=== PATIENT | female | born 1965 | race Caucasian/White ===

== ENCOUNTER 2016-06-01 11:55 | Emergency (ER) | payer MEDICAID, OTHER ==
[~2016-06-01] VITALS: Ht 160 cm; Wt 59.0 kg
[~2016-06-01 11:55] MED LIST: ALPR2TAB7 PO; LEVE500T9 PO
[2016-06-01] MEDS ORDERED: BUPR300T52 PO (12:04)
[2016-06-01] MEDS ORDERED: LEVE1000 PO (12:05)
--- NOTE | 2016-06-01 12:08 | NUR ---
dr toscano at the bedside for eval.
[2016-06-01] MEDS ORDERED: LEVETIRACETAM 250 MG TABLET ONE (12:28)
[2016-06-01] MEDS ORDERED: LEVETIRACETAM 250 MG TABLET PO ONE (12:30)
--- NOTE | 2016-06-01 12:33 | NUR ---
lunch provided, pt ate 100%. resting in bed at this time.
[2016-06-01 12:37] LABS: BASOPHILS % (AUTO) 0.5 % (0.0-2.0); EOSINOPHILS % (AUTO) 0.5 % (0.0-7.0); HEMATOCRIT 41.3 % (37.0-47.0); HEMOGLOBIN 13.7 g/dL (12.0-16.0); LYMPHOCYTES # (AUTO) 1.8 K/uL (0.8-4.8); LYMPHOCYTES % (AUTO) 25.9 % (20.5-51.5); MEAN CORPUSCULAR HEMOGLOBIN 29.5 uug (27.0-31.0); MEAN CORPUSCULAR HGB CONC 33 g/dL (32.0-37.0); MEAN CORPUSCULAR VOLUME 89.1 fL (81.0-99.0); MONOCYTES # (AUTO) 0.5 K/uL (0.1-1.30); MONOCYTES % (AUTO) 6.9 % (0.0-11.0); NEUTROPHILS # (AUTO) 4.8 K/uL (1.8-8.9); NEUTROPHILS % (AUTO) 66.2 % (38.5-71.5); PLATELET COUNT (AUTO) 412 K/uL (150-450); RED BLOOD CELL COUNT(AUTO) 4.63 MIL/uL (4.20-5.40); RED CELL DISTRIBUTION WIDTH 13.1 % (11.5-14.5); WHITE BLOOD COUNT (AUTO) 7.1 K/uL (4.0-11.2)
[2016-06-01 12:40] LABS: *BLOOD, URINE 3+ (NEGATIVE); *CLARITY,URINE CLOUDY (CLEAR); *COLOR,URINE YELLOW (YELLOW); *KETONES,URINE 1+ (NEGATIVE); *PROTEIN,URINE 2+ (NEGATIVE); UGLUCOSE NEGATIVE (NEGATIVE)
[2016-06-01 12:45] LABS: CALCIUM 9.5 mg/dL (8.5-10.1); CARBON DIOXIDE 31 mmol/L (21-32); CHLORIDE 104 mmol/L (98-107); CREATININE 0.9 mg/dL (0.6-1.3); GFR 67 mL/min (>60); GLUCOSE 91 mg/dL (74-106); POTASSIUM 4.4 mmol/L (3.5-5.1); SODIUM SERUM 141 mmol/L (136-145); UREA NITROGEN, BLOOD 18 mg/dL (7-18)
[2016-06-01 12:54] LABS: ETHANOL < 3 MG/DL (0-0)
[2016-06-01 12:58] LABS: *AMPHETAMINE, URINE POSITIVE (NEGATIVE); *BARBITURATE, URINE NEGATIVE (NEGATIVE); *CANNABINOID, URINE NEGATIVE (NEGATIVE); *COCCAINE, URINE NEGATIVE (NEGATIVE); *OPIATE, URINE NEGATIVE (NEGATIVE); *PHENCYCLIDINE SCREEN,URINE NEGATIVE (NEGATIVE)
[2016-06-01 12:59] LABS: ALANINE AMINOTRANSFERASE 24 U/L (14-59); ALBUMIN 3.6 g/dL (3.4-5.0); ALKALINE PHOSPHATASE 49 U/L (50-136); ASPARTATE AMINOTRANSFERASE 16 U/L (15-37); BILIRUBIN,DIRECT 0.1 mg/dL (0.0-0.2); BILIRUBIN,TOTAL 0.5 mg/dL (0.2-1.0); TOTAL PROTEIN, SERUM 8.3 g/dL (6.4-8.2)
[2016-06-01 13:18] LABS: ACETAMINOPHEN < 2.0 ug/mL (10-30)
--- NOTE | 2016-06-01 13:21 | NUR ---
pt is medically cleared by dr toscano. thomas kraus from [facility] called and eta is 45 min.
[2016-06-01 13:32] LABS: LEUKOCYTE ESTERASE ,URINE TRACE (NEGATIVE); NITRITE, URINE POSITIVE (NEGATIVE)
[2016-06-01 13:36] LABS: *BILIRUBIN,URIN NEGATIVE (NEGATIVE)
[2016-06-01 13:54] LABS: BACTERIA,URINE MANY /HPF (NONE SEEN); SQUAMOUS EPITHELIAL CELL,UR MANY /HPF (NONE SEEN)
--- NOTE | 2016-06-01 14:24 | NUR ---
ANIA MCGARRY FROM [facility] AT BEDSIDE FOR PSYCH EVAL.
[2016-06-01 15:06] VITALS: BP 109/69
--- NOTE | 2016-06-01 15:06 | NUR ---
Patient given written and verbal discharge instructions. Patient verbalizes understanding of instructions. Patient is ambulatory with steady gait. Refuses offer of residential placement. Patient given list of available shelters in surrounding area.
== END 2016-06-01 15:07 | disposition home or self-care (01) ==
LOC: ER 11:57
DX: F32.9 Major depressive disorder, single episode, unspecified (principal); G40.909 Epilepsy, unspecified, not intractable, without status epilepticus; C50.912 Malignant neoplasm of unspecified site of left female breast; F41.9 Anxiety disorder, unspecified; Z59.0 Homelessness; Z88.0 Allergy status to penicillin; Z88.6 Allergy status to analgesic agent
CPT/HCPCS: 36415; 80307; 85025; A4663; G0480-TC; G6040-TC